=== PATIENT | female | born 1980 | race Caucasian/White ===

== ENCOUNTER 2017-07-18 12:39 | Emergency (ER) | payer OTHER ==
[2017-07-18 12:47] VITALS: RESP 16
[2017-07-18] MEDS ORDERED: HYDROGEN PEROXIDE 236 ML BOTTLE TP ONE (13:12)
--- NOTE | 2017-07-18 13:32 | EDPHY ---
H & P Time Seen by Provider: 07/18/17 13:02 HPI/ROS: CHIEF COMPLAINT: Concerns over possible tympanic membrane perforation HISTORY OF PRESENT ILLNESS: 37-year-old female generally healthy flew in from [place] initially states that during the flight she had progressive right otalgia which suddenly. She felt a sudden pop sensation. She has noticed bloody otorrhea from the right ear since with slightly decreased hearing as well. No foreign body insertion. She has been careful to keep water out of the area. No dizziness. No tinnitus. No nausea or vomiting. PHYSICAL EXAM (Prior to examination, patient consented to physical exam, hands were washed and my usual and customary physical exam procedures followed) 1) GENERAL: Well-developed, well-nourished, alert and oriented. Appears to be in no acute distress. 2) HEAD: Normocephalic 3) HEENT: sclera anicteric. Left ear clear EAC intact TM. Right ear: Dried blood in the external auditory canal which is cleaned by myself revealing evidence of tympanic membrane perforation. Mastoid nontender non boggy. 4) LUNGS: Breathing comfortably. Smoking Status: Never smoked Constitutional: Initial Vital Signs Temperature (C) 36.8 C 07/18/17 12:44 Heart Rate 88 07/18/17 12:44 Respiratory Rate 16 07/18/17 12:44 Blood Pressure 125/78 H 07/18/17 12:44 O2 Sat (%) 98 07/18/17 12:44 O2 Delivery Mode Room Air Allergies/Adverse Reactions: No Known Allergies Allergy (Unverified 07/18/17 12:43) Home Medications: Medication Instructions Recorded Ofloxacin [Floxin] 10 ml OT DAILY #1 btl 07/18/17 MDM/Departure - Depart Disposition: Home, Routine, Self-Care Clinical Impression: Perforation of right tympanic membrane Condition: Good Instructions: Ruptured Eardrum (ED) Additional Instructions: Do not get water in your ear Prescriptions: Ofloxacin [Floxin] 10 ml OT DAILY #1 btl Referrals: Keegan Schmidt MD [Medical Doctor] - 2-3 days, call for appt. (You may also seen in nose and throat doctor in [place] when you return home)
[2017-07-18 13:44] VITALS: BP 123/65; PULSE 75; TEMP 97.7; O2SAT 96
== END 2017-07-18 13:43 | disposition home or self-care (01) ==
DX: H72.91 Unspecified perforation of tympanic membrane, right ear (principal)